=== PATIENT | female | born 2000 | race Caucasian/White ===

== ENCOUNTER 2024-12-12 10:33 | Observation (INO) | payer BC ==
[2024-12-12 11:20] LABS: MEAN PLATELET VOLUME 7.8 fL (7.1-12.4); PLATELET COUNT,PLT 260 x10(3)uL (151-488); RED BLOOD CELL COUNT 4.42 x10(6)uL (3.60-5.20); RED CELL DISTRIBUTION WIDTH 12.4 % (12.3-16.5); WHITE BLOOD CELL COUNT,WBC 16.2 x10-3/uL (3.0-10.3)
[2024-12-12 11:24] LABS: BLOOD UREA NITROGEN,BUN 12 mg/dL (7-18); CARBON DIOXIDE,CO2 23 mmol/L (21-32); CHLORIDE,CL 100 mmol/L (100-110); CREATININE 1.1 mg/dL (0.55-1.02); ESTIMATED GFR 72 mL/min (>60); GLUCOSE RANDOM 96 mg/dL (80-116); POTASSIUM,K 3.3 mmol/L (3.5-5.3); SODIUM,NA 134 mmol/L (135-145)
[2024-12-12 11:29] LABS: A/G RATIO 0.7; ALANINE AMINOTRANSFERASE,ALT 91 U/L (12-36); ASPARTATE AMNIOTRANSFERASE,AST 41 IU/L (5-25); BILIRUBIN TOTAL 4.1 mg/dL (0.1-1.3); PROTEIN TOTAL,TP 6.7 g/dL (6.0-8.0)
[2024-12-12 11:37] LABS: LACTIC ACID 2.1 mmol/L (0.4-2.0)
[2024-12-12 11:47] LABS: BAND PERCENT MAN 11 % (0-6); EOSINOPHILS PERCENT MAN 1 % (0-5); LYMPHOCYTES PERCENT MAN 1 % (13-37); MONOCYTES PERCENT MAN 1 % (4-12); SEG NEUTROPHILS PERCENT MAN 86 % (46-82)
[2024-12-12] MEDS: Ondansetron 4 MG/2 ML SDV IVPUSH ONE (12:06)
[2024-12-12] MEDS: Magnesium Sulfate 2 GM/50 mL 2 GM in Premix Bag 1 BAG IV ONE (12:09)
[2024-12-12] MEDS: Iopamidol 755 Mg/ML 100 ML Bottle IV SCH (12:24)
[2024-12-12 14:04] LABS: GLUCOSE,URINE NORMAL (NORMAL); OCCULT BLOOD,URINE NEGATIVE (NEGATIVE)
[2024-12-12 14:12] LABS: APPEARANCE,URINE SLIGHTLY CLOUDY (CLEAR)
[2024-12-12 14:13] LABS: SQUAMOUS EPITHELIAL CELLS,UR FEW (NS,R,O); WBC CASTS,URINE FEW (NS)
[2024-12-12] MEDS: metroNIDAZOLE/Normal Saline 500 MG in Premix Bag 1 BAG IV SCH (16:39)
[2024-12-12 18:26] LABS: INR 1.34 (1.00-1.24)
[2024-12-12] MEDS ORDERED: metroNIDAZOLE/Normal Saline 500 MG in Premix Bag 1 BAG IV SCH (23:30)
== END 2024-12-12 21:15 ==
LOC: FB.ED 10:33 → FB.MS 14:52 → INTOOBSV 14:52
PROVIDERS: ADMIT Family Medicine; ATTEND Family Medicine
DX: K52.9 Noninfective gastroenteritis and colitis, unspecified (principal); E86.0 Dehydration; N39.0 Urinary tract infection, site not specified; R79.89 Other specified abnormal findings of blood chemistry; Z20.822 Contact with and (suspected) exposure to COVID-19
CPT/HCPCS: 36415; 71260; 74177; 80053; 81001; 83605; 83690; 83735; 85025; 85610; 86140; 87040; 87086; 87088; 87428; 87651; 93005; A9270; J0696; J1836; J2405; J2550; J3475; J7030; Q9967; 99222; 99238